=== PATIENT | female | born 1960 | race Caucasian/White ===

== ENCOUNTER → 2016-12-03 | Outpatient (CLI) | payer OTHER | LOC: FIMAGING 09:21 | PROVIDERS: ATTEND Family Medicine | DX: N60.02 Solitary cyst of left breast (principal) ==

== ENCOUNTER → 2018-05-13 | Outpatient (CLI) | payer OTHER | LOC: FIMAGING 16:01 | PROVIDERS: ATTEND Family Medicine | DX: K76.9 Liver disease, unspecified (principal); K86.9 Disease of pancreas, unspecified; K82.9 Disease of gallbladder, unspecified ==

== ENCOUNTER 2018-05-15 04:53 | Emergency (ER) | payer OTHER ==
--- NOTE | 2018-05-15 05:03 | EDPHY ---
H & P Time Seen by Provider: 05/15/18 04:57 HPI/ROS: Chief Complaint: Abdominal pain, liver lesion HPI: 58-year-old woman presenting with concerns about a newly found liver lesion on ultrasound. She has been having some abdominal pain for the last week. She was seen by her primary care physician for regular physical a week ago and was noted that she had some mildly elevated liver enzymes. A right upper quadrant ultrasound was performed is on which they found a solitary liver lesion. Recommendation was for the patient to have an MRI with and without contrast. They also noted a small lesion in the mid body of the pancreas. Recommendation was to perform an MRCP as well. Patient denies nausea or vomiting. No weight loss or weight gain. No fevers or chills. ROS: 10 systems were reviewed and were negative except those elements noted in the HPI. PMH: Hypertension Social History: No smoking Family History: non-contributory Physical Exam: Gen: Awake, Alert, No Distress HEENT: Nose: no rhinorrhea Eyes: PERRLA, EOMI Mouth: Moist mucosa Neck: Supple, no JVD Chest: nontender, lungs clear to auscultation Heart: S1, S2 normal, no murmur Abd: Soft, non-tender, no guarding Back: no CVA tenderness, no midline tenderness Ext: no edema, non-tender Skin: no rash Neuro: CN II-XII intact, Sensation grossly intact, Strength 5/5 in bilateral upper and lower extremities (Blue Santos) Constitutional: Initial Vital Signs Temperature (C) 36.7 C 05/15/18 05:03 Heart Rate 79 05/15/18 05:03 Respiratory Rate 18 05/15/18 05:03 Blood Pressure 141/94 H 05/15/18 05:03 O2 Sat (%) 97 05/15/18 05:03 O2 Delivery Mode Room Air Allergies/Adverse Reactions: benzoin Allergy (Mild, Verified 12/05/12 15:23) acetaminophen [From Percocet] Allergy (Unknown, Verified 02/11/11 18:54) amoxicillin [Amoxicillin] Allergy (Unknown, Verified 02/11/11 18:54) hydrocodone bitartrate [From Vicodin] Allergy (Unknown, Verified 02/11/11 18:54) oxycodone HCl [From Percocet] Allergy (Unknown, Verified 02/11/11 18:54) Home Medications: Medication Instructions Recorded Aspirin 02/11/11 Estradiol [ESTRADIOL] 12/05/12 Losartan Potassium 05/15/18 Medical Decision Making - Diagnostics Imaging Results: Preliminary MRI results by Dr. Gaytan reveal a hemangioma in the liver and a benign pancreatic mass. There is an additional liver lesion that will be reviewed/reported tomorrow, after Dr. Gaytan reviews the MRI with other radiologists. (Amita Alcaraz) ED Course/Re-evaluation: 0800.-MRI results discussed with Tiny. There are 2 liver lesions, 1 is a hemangioma and the other liver lesion will be further reviewed tomorrow in collaboration with other radiologists. The radiologist will contact the ED doc Wednesday morning to discuss the final reading of the MRI. Tiny is aware of this and will await a phone call from the ED doc or will call tomorrow afternoon for results. (Amita Alcaraz) Patient signed out to Dr. Alcaraz pending MRI results (Blue Santos) - Data Points Point of Care Test Results: Chemistry 05/15/18 05:22 POC Creatinine 0.8 mg/dL mg/dL (0.6-1.0) Departure - Departure Disposition: Home, Routine, Self-Care Clinical Impression: Liver lesion Condition: Good Instructions: Additional Information Additional Instructions: Dr. Gaytan or the ED doc will call you tomorrow with final MRI results. Referrals: NONE *PRIMARY CARE P,. [Primary Care Provider] - As per Instructions
[2018-05-15 05:06] VITALS: BP 141/94
[2018-05-15] MEDS ORDERED: GADOBUTROL 10 ML VIAL IVP ONE (05:56)
== END 2018-05-15 07:56 | disposition home or self-care (01) ==
DX: K76.9 Liver disease, unspecified (principal); K86.9 Disease of pancreas, unspecified
CPT/HCPCS: 82565-PO; A9585